=== PATIENT | female | born 1990 | race African-American/Black ===

== ENCOUNTER 2020-01-22 15:51 | Outpatient (CLI) | payer OTHER ==
--- NOTE | 2020-01-22 17:07 | Ultrasound Report ---
PROCEDURE: OB First Trimester INDICATIONS: POSITIVE TEST OUTSIDE/PRIOR DATING DATA: Last menstrual period (LMP): 12/01/2019. LMP-based estimated date of delivery (DOMINGUEZ): 09/06/2020. First dating scan (date and location): 01/22/2020, this examination. Estimated date of delivery (DOMINGUEZ) from first dating scan: 09/08/2020. TECHNIQUE: Real-time scanning was performed of the fetus and maternal pelvic organs, with image documentation. COMPARISON: None. FINDINGS: Embryo: Single living intrauterine fetus is present with a heart rate measured 1 50 bpm. [place] -rump length measures 0.8 cm, 7 weeks 1 day. Perigestational hemorrhage is noted measuring 2.1 x 0.8 x 2.8 cm. Measurement variability in dating: +/- 4 weeks by LMP, +/- 7 days by mean sac diameter (use before 6 weeks gestation if crown-rump length not able to be measured), +/- 5 days by crown-rump length (6-12 weeks gestation). Maternal organs: Ovaries unremarkable. Presumed right-sided corpus luteum. Limited images through t he kidneys demonstrate no hydronephrosis. IMPRESSION: Single living intrauterine fetus with gestational age measuring 7 weeks 1 day by today's ultrasound m easurements. DOMINGUEZ of 09/08/2020, concordant with LMP as above. Perigestational hemorrhage Reviewed by: Gurvinder Kenny MD on 01/22/2020 5:05 PM PDT Approved by: Gurvinder Kenny MD on 01/22/2020 5:05 PM PDT Station ID: [id number]
--- NOTE | 2020-01-22 17:07 | Ultrasound Report ---
PROCEDURE: OB Transvaginal INDICATIONS: POSITIVE PREG TEST Please see findings on the contemporaneous comparison first trimester OB ultrasound report. Reviewed by: Gurvinder Kenny MD on 01/22/2020 5:06 PM PDT Approved by: Gurvinder Kenny MD on 01/22/2020 5:06 PM PDT Station ID: [id number]
== END 2020-01-22 15:52 | disposition home or self-care (01) ==
LOC: DI 15:51
PROVIDERS: ATTEND Obstetrics & Gynecology
DX: Z32.01 Encounter for pregnancy test, result positive (principal)
CPT/HCPCS: 76801; 76817

== ENCOUNTER 2020-02-04 07:00 | Outpatient (CLI) | payer OTHER ==
[2020-02-04 19:44] LABS: CANDIDA GROUP DNA NEGATIVE (NEGATIVE); CANDIDA KRUSEI DNA NEGATIVE (NEGATIVE); TRICHOMONAS VAGINALIS DNA NEGATIVE (NEGATIVE)
== END 2020-02-04 23:59 | disposition home or self-care (01) ==
LOC: LAB.R 07:00
PROVIDERS: ATTEND Obstetrics & Gynecology
DX: N76.0 Acute vaginitis (principal)
CPT/HCPCS: 87661; 87801

== ENCOUNTER 2020-02-18 10:00 | Outpatient (CLI) | payer OTHER, MEDICAID | END 2020-02-18 10:01 | disposition home or self-care (01) | LOC: DI 10:00 | PROVIDERS: ATTEND Obstetrics & Gynecology | DX: O26.891 Other specified pregnancy related conditions, first trimester (principal); Z86.79 Personal history of other diseases of the circulatory system; Z3A.11 11 weeks gestation of pregnancy | CPT/HCPCS: 93306 ==

== ENCOUNTER 2020-03-17 07:00 | Outpatient (CLI) | payer OTHER, MEDICAID | END 2020-03-17 23:59 | disposition home or self-care (01) | LOC: LAB.WCP 07:00 | PROVIDERS: ATTEND Obstetrics & Gynecology | DX: O09.90 Supervision of high risk pregnancy, unspecified, unspecified trimester (principal); Z86.32 Personal history of gestational diabetes; Z3A.00 Weeks of gestation of pregnancy not specified | CPT/HCPCS: 36415; 81599; 82105; 82950 ==

== ENCOUNTER 2020-03-24 07:24 | Outpatient (CLI) | payer OTHER, MEDICAID | END 2020-03-24 07:25 | disposition home or self-care (01) | LOC: LAB 07:24 | PROVIDERS: ATTEND Obstetrics & Gynecology | DX: O99.810 Abnormal glucose complicating pregnancy (principal) | CPT/HCPCS: 36415; 82951; 82952 ==

== ENCOUNTER 2020-07-06 15:36 | Outpatient (CLI) | payer OTHER, MEDICAID ==
[2020-07-06 16:41] VITALS: BP 131/83
--- NOTE | 2020-07-08 10:20 | PROCEDURE REPORT ---
- HPI Current EDU 09/06/20 Gestation 31 Weeks and 1 Days 6 Para 2 Vital Signs Temperature 98.6 F 07/06/20 16:04 Heart Rate 97 07/06/20 16:04 Respiratory Rate 18 07/06/20 16:04 Blood Pressure 131/83 H 07/06/20 16:04 Temperature 98.6 F 07/06/20 16:04 Heart Rate 97 07/06/20 16:04 Respiratory Rate 18 07/06/20 16:04 Blood Pressure 131/83 H 07/06/20 16:04 O2 Saturation - NST Procedure NST Procedure Start Date 07/06/20 Start Time 15:45 Stop Time 16:10 Vibroacoustic Stimulation Used No Patient States Movement Yes EFM 135 mod jessenia 15x15 accels, series of 10x10 accels, one variable decel AGA TOCO: Quiet - Results and Plan Findings/Impression: Patient is a 30 yo at 31+1 wga here with decreased movement NST reactive and reassuring- AGA and Cat I for gestational age Starting twice weekly NST and weekly TY at 32 weeks per primary OB at [address] with hx of pp endocarditis 3 months s/p delivery
== END 2020-07-06 16:15 | disposition home or self-care (01) ==
LOC: WFO 15:36 → FBP 15:40 → WFO 16:15
PROVIDERS: ATTEND Obstetrics & Gynecology
DX: O36.8130 Decreased fetal movements, third trimester, not applicable or unspecified (principal); O24.410 Gestational diabetes mellitus in pregnancy, diet controlled; Z3A.31 31 weeks gestation of pregnancy; Z86.79 Personal history of other diseases of the circulatory system
CPT/HCPCS: 59025; 99212

== ENCOUNTER 2020-07-16 15:13 | Outpatient (CLI) | payer OTHER, MEDICAID ==
--- NOTE | 2020-07-16 17:17 | Ultrasound Report ---
PROCEDURE: OB Limited INDICATIONS: GESTATIONAL DM , SUPER OF HIGH RISK OUTSIDE/PRIOR DATING DATA: Last menstrual period (LMP): 12/01/2019. LMP-based estimated date of delivery (DOMINGUEZ): 09/06/2020. First dating scan (date and location): 01/22/2020. Estimated date of delivery (DOMINGUEZ) from first dating scan: 09/08/2020. TECHNIQUE: Real-time scanning was performed of the fetus, with image documentation. Endovaginal scanning: Not performed COMPARISON: 01/22/2020. FINDINGS: A single living intrauterine gestation is present. Presentation: Cephalic Placenta: Placental position is posterior, without previa. Amniotic fluid index: 11.2 cm, which is at 18.7%. Largest pocket measures 4.2 cm. heart rate: 149 beats per minutes. Maternal cervical canal: 4.6 cm long; normal length is 2.5 cm or more. Estimated gestational age from initial scan: 32 week, 2 days. IMPRESSION: 1. Single live intrauterine with fetus in vertex presentation. heart rate is 149 bpm. 2. TY equals 11.2 cm with the largest pocket measures 4.2 cm. This is at 18.7%. 3. Cervix is closed, cervical canal measures 4.6 cm. Reviewed by: Washington Hamlin MD on 07/16/2020 4:16 PM [facility] Approved by: Washington Hamlin MD on 07/16/2020 4:16 PM [facility] Station ID: [id number]
== END 2020-07-16 15:14 | disposition home or self-care (01) ==
LOC: DI 15:13
PROVIDERS: ATTEND Obstetrics & Gynecology
DX: O09.90 Supervision of high risk pregnancy, unspecified, unspecified trimester (principal); O24.410 Gestational diabetes mellitus in pregnancy, diet controlled; Z86.79 Personal history of other diseases of the circulatory system; Z3A.32 32 weeks gestation of pregnancy

== ENCOUNTER 2020-07-16 15:59 | Outpatient (CLI) | payer OTHER, MEDICAID ==
[2020-07-16 16:54] VITALS: BP 114/63
--- NOTE | 2020-07-16 19:39 | Ultrasound Report ---
PROCEDURE: OB Biophysical Profile INDICATIONS: DM OUTSIDE/PRIOR DATING DATA: Last menstrual period (LMP): 12/01/2019. LMP-based estimated date of delivery (DOMINGUEZ): 09/06/2020. First dating scan (date and location): 01/22/2020. Estimated date of delivery (DOMINGUEZ) from first dating scan: 09/08/2020. TECHNIQUE: Real-time scanning was performed of the fetus, with image documentation and biometric gómez surements. Biophysical profile was also obtained. Endovaginal scanning: Not performed COMPARISON: Earlier same day FINDINGS: General: A single living intrauterine gestation is present. Presentation: Transverse/oblique Placenta: Placental position is posterior, without previa. Amniotic fluid index: 12.6 cm, 30.9 percentile for gestational age. heart rate: 154 beats per minute. Maternal cervical canal: 4.6 cm long; normal length is 2.5 cm or more. This was measured from earli er today. Estimated gestational age : 32 weeks and 2 days Biophysical profile: Tone: 2 points. Movement: 2 points. Respiration: 0 points. Largest pocket of fluid: 2 points. Largest vertical pocket measured 4.7 cm Umbilical artery Doppler: Normal S/D ratios and umbilical artery Doppler waveforms. IMPRESSION: Single living intrauterine gestation with estimated gestational age of approximately 32 weeks and 2 d ays. Biophysical profile score of 6 out of 8. Largest vertical fluid pocket measured 4.7 cm. Normal S/D ratios and umbilical artery Doppler waveforms. Reviewed by: Nish Gerardo MD on 07/16/2020 7:38 PM PST Approved by: Nish Gerardo MD on 07/16/2020 7:38 PM PST Station ID: [id number]
--- NOTE | 2020-07-16 20:13 | PROVIDER PROGRESS NOTE ---
- HPI Chief Complaint: Other ( surveillance visit for A2 GDM) Current : Current EDU 09/06/20 Gestation 32 Weeks and 4 Days 5 Para 2 Vital Signs Temperature 98.1 F 07/16/20 16:20 Heart Rate 91 07/16/20 16:20 Respiratory Rate 18 07/16/20 16:20 Blood Pressure 114/63 07/16/20 16:20 O2 Saturation 99 07/16/20 16:20 Temperature 98.1 F 07/16/20 16:20 Heart Rate 91 07/16/20 16:20 Respiratory Rate 18 07/16/20 16:20 Blood Pressure 114/63 07/16/20 16:20 O2 Saturation 99 07/16/20 16:20 - Procedures OB Procedure Performed: NST NST Procedure: NST Procedure Start Date 07/16/20 Start Time 16:11 Stop Time 16:10 Vibroacoustic Stimulation Used Yes Patient States Movement Yes Service Date of procedure: 07/16/20 Findings: Pt here for routine surveillance for A2 GDM. also complicated by a history of preeclampsia and a history of myocarditis that MFM has deemed NOT secondary to . Feeling good FM. No bleeding or leaking. Contractions about 1-2 per hour. AVSS Alert, NAD NST non-reactive. Baseline normal, no accels, no decels. BPP 6/10 -2 for NST and -2 for breathing. Movement only with VAS. MVP 4.5 Dopplers S/D mid cord 3.0 normal. A/P: 30yo at 32w4d here for routine surveillance for A2GDM with is a bnormal with BPP of 6/10, normal dopplers, normal movement. Discussed with MFM at [facility] Dr. Bustamante who recommends repeating BPP in 24h. Patient will deliver in [place] with Dr. Tello in order to be at the same hospital as her usual glass inserter is at that hospital. Would be best to repeat BPP there in case the patient needs inpatient management. Called covering provider, Dr. Kimball, to arrange BPP there tomorrow. Dr. Kimball recommends coming to OB triage in [place] for her BPP tomorrow. Sent her with her ultrasound results and this note in- hand.
== END 2020-07-16 20:40 | disposition home or self-care (01) ==
LOC: WFO 15:59 → FBP 16:00 → WFO 20:40
PROVIDERS: ATTEND Obstetrics & Gynecology
DX: O09.893 Supervision of other high risk pregnancies, third trimester (principal); O24.410 Gestational diabetes mellitus in pregnancy, diet controlled; Z86.79 Personal history of other diseases of the circulatory system; Z3A.32 32 weeks gestation of pregnancy
CPT/HCPCS: 59025; 99213

== ENCOUNTER 2020-07-20 13:08 | Outpatient (CLI) | payer OTHER, MEDICAID ==
--- NOTE | 2020-07-20 16:36 | Ultrasound Report ---
PROCEDURE: OB Biophysical Profile INDICATIONS: non-reactive NST OUTSIDE/PRIOR DATING DATA: Last menstrual period (LMP): 12/01/2019. LMP-based estimated date of delivery (DOMINGUEZ): 09/06/2020. First dating scan (date and location): 01/22/2020, [facility] Estimated date of delivery (DOMINGUEZ) from first dating scan: 09/08/2020. TECHNIQUE: Real-time scanning was performed of the fetus, with image documentation and biometric gómez surements. Biophysical profile was also obtained. Endovaginal scanning: Not performed COMPARISON: None. FINDINGS: General: A single living intrauterine gestation is present. Presentation: Transverse with head to maternal left Placenta: Placental position is posterior, without previa. Amniotic fluid index: 12.6 cm, 31st percentile for gestational age. heart rate: 154 beats per minute. Maternal cervical canal: 5.7 cm long; normal length is 2.5 cm or more. Biophysical profile: Tone: 2 points. Movement: 2 points. Respiration: 0 points. Largest pocket of fluid: 2 points. Umbilical artery: At the placenta, the umbilical artery S/D ratios were 2.1, 3.4. In the mid segment the S/D ratios were 3.1, 3.0. Near the umbilicus the S/D ratios were 2.8, 2.9. IMPRESSION: Single live intrauterine gestation. Biophysical profile score of 6/8. Umbilical artery S/D ratios as above. Reviewed by: Jay Agarwal MD on 07/20/2020 3:[address] [facility] Approved by: Jay Agarwal MD on 07/20/2020 3:[address] [facility] Station ID: [id number]
--- NOTE | 2020-07-22 15:12 | PROCEDURE REPORT ---
- HPI Diagnosis/Indication for NST: Gestational Diabetes Current EDU 09/06/20 Gestation 33 Weeks and 1 Days 6 Para 2 - NST Procedure NST Procedure Start Date 07/20/20 Start Time 13:42 Stop Time 14:40 Vibroacoustic Stimulation Used Yes: x2 after 20 minute non reactive strip obtained Patient States Movement Yes - Results and Plan Findings/Impression: because pf nonreactive NST BPP was done with 03/14. Plan: Pt is to see Provider in [place] on Monday. Reviewed FM
== END 2020-07-20 15:10 | disposition home or self-care (01) ==
LOC: WFO 13:08 → FBP 13:11 → WFO 15:10
PROVIDERS: ATTEND Obstetrics & Gynecology
DX: O24.419 Gestational diabetes mellitus in pregnancy, unspecified control (principal); Z3A.33 33 weeks gestation of pregnancy
CPT/HCPCS: 59025; 99213

== ENCOUNTER 2020-07-23 12:17 | Outpatient (CLI) | payer OTHER, MEDICAID ==
--- NOTE | 2020-07-23 14:58 | Ultrasound Report ---
PROCEDURE: OB Limited INDICATIONS: GEST DM, WEEKLY TY OUTSIDE/PRIOR DATING DATA: Last menstrual period (LMP): 12/01/2019. LMP-based estimated date of delivery (DOMINGUEZ): 09/06/2020. First dating scan (date and location): 01/22/2020. Estimated date of delivery (DOMINGUEZ) from first dating scan: 09/08/2020. TECHNIQUE: Real-time scanning was performed of the fetus, with image documentation. Endovaginal scanning: Not performed COMPARISON: None. FINDINGS: A single living intrauterine gestation is present. Presentation: Cephalic Placenta: Placental position is left posterior, without previa. Amniotic fluid index: 12.3 cm, 30th percentile for gestational age. heart rate: 143 beats per minutes. Estimated gestational age from initial scan: 33 weeks 2 days. IMPRESSION: TY is 12.3 cm, 30th percentile for gestational age. Reviewed by: Jay Agarwal MD on 07/23/2020 1:57 PM [facility] Approved by: Jay Agarwal MD on 07/23/2020 1:57 PM [facility] Station ID: [id number]
== END 2020-07-23 12:18 | disposition home or self-care (01) ==
LOC: DI 12:17
PROVIDERS: ATTEND Obstetrics & Gynecology
DX: O24.410 Gestational diabetes mellitus in pregnancy, diet controlled (principal); Z3A.33 33 weeks gestation of pregnancy

== ENCOUNTER 2020-07-23 12:58 | Outpatient (CLI) | payer OTHER, MEDICAID ==
[2020-07-23 13:20] VITALS: BP 122/72
--- NOTE | 2020-07-23 15:26 | Ultrasound Report ---
PROCEDURE: OB Biophysical Profile INDICATIONS: non reactive nst OUTSIDE/PRIOR DATING DATA: Last menstrual period (LMP): 12/01/2019. LMP-based estimated date of delivery (DOMINGUEZ): 09/06/2020. First dating scan (date and location): 01/22/2020. Estimated date of delivery (DOMINGUEZ) from first dating scan: 09/08/2020. TECHNIQUE: Real-time scanning was performed of the fetus, with image documentation and biometric gómez surements. Biophysical profile was also obtained. Endovaginal scanning: Not needed COMPARISON: All prior OB ultrasound studies for this FINDINGS: General: A single living intrauterine gestation is present. Presentation: Vertex Placenta: Placental position is posterior left, without previa. Amniotic fluid index: 13.7 cm, normal for gestational age. heart rate: 163 beats per minute. Biophysical profile: Tone: 2 points. Movement: 2 points. Respiration: 2 points. Largest pocket of fluid: 2 points. Cord Doppler assessment is normal also, at the placenta, middle third of the umbilical cord and at th e cord insertion measuring 2.0, 2.1, 2.5 respectively. IMPRESSION: Normal biophysical profile, normal cord Doppler assessment. Reviewed by: Jose Miguel Romero MD on 07/23/2020 3:25 PM PST Approved by: Jose Miguel Romero MD on 07/23/2020 3:25 PM PST Station ID: [id number]
--- NOTE | 2020-07-27 09:58 | PROCEDURE REPORT ---
- HPI Diagnosis/Indication for NST: Gestational Diabetes Current EDU 09/06/20 Gestation 33 Weeks and 4 Days 3 Para 2 Vital Signs Temperature 98.2 F 07/23/20 13:19 Heart Rate 98 07/23/20 13:19 Respiratory Rate 17 07/23/20 13:19 Blood Pressure 122/72 07/23/20 13:19 O2 Saturation 100 07/23/20 13:19 Temperature 98.2 F 07/23/20 13:19 Heart Rate 98 07/23/20 13:19 Respiratory Rate 17 07/23/20 13:19 Blood Pressure 122/72 07/23/20 13:19 O2 Saturation 100 07/23/20 13:19 - NST Procedure NST Procedure Start Date 07/23/20 Start Time 13:15 Stop Time 14:20 Vibroacoustic Stimulation Used No Patient States Movement Yes EFM 150 Had period of moderate varibiality without accels; No decels TOCOL irritable Ordered BPP, returned 03/14 - Results and Plan Findings/Impression: Patient is a 30 yo with a history of pre-eclampsia and A1DM here for NST non-reactive NST; later Cat I BPP 03/14 Cont with twice weekly NSt and weekly TY DX A1DM
== END 2020-07-23 15:20 | disposition home or self-care (01) ==
LOC: WFO 12:58 → FBP 13:01 → WFO 15:20
PROVIDERS: ATTEND Obstetrics & Gynecology
DX: O24.410 Gestational diabetes mellitus in pregnancy, diet controlled (principal); O28.8 Other abnormal findings on antenatal screening of mother; Z3A.33 33 weeks gestation of pregnancy
CPT/HCPCS: 59025

== ENCOUNTER 2020-07-27 14:40 | Outpatient (CLI) | payer OTHER, MEDICAID ==
[2020-07-27 15:22] VITALS: BP 109/64
--- NOTE | 2020-07-27 21:12 | PROCEDURE REPORT ---
- HPI Diagnosis/Indication for NST: Intrauterine growth restriction Vital Signs Temperature 99.5 F 07/27/20 14:50 Heart Rate 96 07/27/20 14:50 Respiratory Rate 16 07/27/20 14:50 Blood Pressure 109/64 07/27/20 14:50 Temperature 99.5 F 07/27/20 14:50 Heart Rate 96 07/27/20 14:50 Respiratory Rate 16 07/27/20 14:50 Blood Pressure 109/64 07/27/20 14:50 O2 Saturation - NST Procedure NST Procedure Start Date 07/27/20 Start Time 14:50 Stop Time 15:55 Vibroacoustic Stimulation Used No Patient States Movement Yes EFM 145 mod jessenia 15x15 accels no decels after VAS TOCO: quiet - Results and Plan Findings/Impression: Patient is a 30 yo at 34+1 with affected by A2DM here for NST Cat I tracing -Cont twice weekly NSt and weekly BPP -Having IOL at 37 wga with [place] Provider DX: -IUP at 34+1 -A1DM -hx of pericarditis
== END 2020-07-27 16:03 | disposition home or self-care (01) ==
LOC: FBP 14:40 → WFO 14:40
PROVIDERS: ATTEND Obstetrics & Gynecology
DX: Z53.9 Procedure and treatment not carried out, unspecified reason (principal)
CPT/HCPCS: 59025; 99212

== ENCOUNTER 2020-07-30 11:24 | Outpatient (CLI) | payer OTHER, MEDICAID ==
--- NOTE | 2020-07-30 12:21 | Ultrasound Report ---
PROCEDURE: OB Biophysical Profile INDICATIONS: GESTATIONAL DM, SUPER HIGH RISK PREGN OUTSIDE/PRIOR DATING DATA: Last menstrual period (LMP): 12/01/2019. LMP-based estimated date of delivery (DOMINGUEZ): 09/06/2020. First dating scan (date and location): 01/22/2020. Estimated date of delivery (DOMINGUEZ) from first dating scan: 09/08/2020. TECHNIQUE: Real-time scanning was performed of the fetus, with image documentation and biometric gómez surements. Biophysical profile was also obtained. Endovaginal scanning: Not performed COMPARISON: None. FINDINGS: General: A single living intrauterine gestation is present. Presentation: Vertex Placenta: Placental position is posterior left, without previa. Amniotic fluid index: 18.2 cm, 73rd percentile for gestational age. heart rate: 149 beats per minute. Maternal cervical canal: Closed, not well seen. Biophysical profile: Tone: 2 points. Movement: 2 points. Respiration: 2 points. Largest pocket of fluid: 2 points. Umbilical artery Doppler: Umbilical artery S/D ratio is 2.2 at the placenta, 2.0 at the midsegment, and 2.1 near the umbilicus. IMPRESSION: Normal biophysical profile and cord Doppler study. Reviewed by: Jay Agarwal MD on 07/30/2020 12:19 PM PST Approved by: Jay Agarwal MD on 07/30/2020 12:19 PM PST Station ID: [id number]
== END 2020-07-30 11:25 | disposition home or self-care (01) ==
LOC: DI 11:24
PROVIDERS: ATTEND Obstetrics & Gynecology
DX: O09.90 Supervision of high risk pregnancy, unspecified, unspecified trimester (principal); O24.410 Gestational diabetes mellitus in pregnancy, diet controlled; Z3A.00 Weeks of gestation of pregnancy not specified

== ENCOUNTER 2020-07-30 12:01 | Outpatient (CLI) | payer OTHER, MEDICAID ==
[2020-07-30 12:32] VITALS: BP 122/81
--- NOTE | 2020-07-30 14:30 | PROCEDURE REPORT ---
- HPI Diagnosis/Indication for NST: Other (hx of pericarditis) Current EDU 09/06/20 Gestation 34 Weeks and 4 Days 2 Para 1 Vital Signs Heart Rate 83 07/30/20 12:31 Respiratory Rate 18 07/30/20 12:31 Blood Pressure 122/81 H 07/30/20 12:31 Temperature 206.2 F H 07/30/20 13:10 Heart Rate 95 07/30/20 13:10 Respiratory Rate 18 07/30/20 13:10 Blood Pressure 122/81 H 07/30/20 13:10 O2 Saturation - NST Procedure NST Procedure Start Date 07/30/20 Start Time 12:21 Stop Time 01:25 EFM 145 mod jessenia 15x15 accels no decels TOCO: quiet - Results and Plan Findings/Impression: Patient is a 30 yo at 34+4 with affected by A2DM here for NST Cat I tracing -Cont twice weekly NST and weekly BPP -Having IOL at 37 wga with [place] Provider DX: -IUP at 34+4 -A1DM -hx of pericarditis
== END 2020-07-30 12:55 | disposition home or self-care (01) ==
LOC: WFO 12:01 → FBP 12:16 → WFO 12:55
PROVIDERS: ATTEND Obstetrics & Gynecology
DX: O24.410 Gestational diabetes mellitus in pregnancy, diet controlled (principal); O09.893 Supervision of other high risk pregnancies, third trimester; Z3A.34 34 weeks gestation of pregnancy; Z86.79 Personal history of other diseases of the circulatory system
CPT/HCPCS: 59025; 99212

== ENCOUNTER 2020-08-03 09:52 | Outpatient (CLI) | payer OTHER, MEDICAID ==
[2020-08-03 10:18] VITALS: BP 115/73
--- NOTE | 2020-08-12 13:45 | PROCEDURE REPORT ---
- HPI Diagnosis/Indication for NST: Gestational Diabetes Current EDU 09/06/20 Gestation 35 Weeks and 1 Days 3 Para 2 Vital Signs Temperature 36.8 C 08/03/20 10:08 Heart Rate 98 08/03/20 10:08 Respiratory Rate 18 08/03/20 10:08 Blood Pressure 115/73 08/03/20 10:08 Temperature 36.8 C 08/03/20 10:11 Heart Rate 101 H 08/03/20 10:11 Respiratory Rate 18 08/03/20 10:11 Blood Pressure 115/73 08/03/20 10:11 O2 Saturation - NST Procedure NST Procedure Start Date 08/03/20 Start Time 09:57 Stop Time 10:55 Vibroacoustic Stimulation Used No Patient States Movement Yes - Results and Plan Findings/Impression: REACTIVE NST Plan: DOS 08/03/2020 CONTINUE ANTINATAL TESTING
== END 2020-08-03 11:00 | disposition home or self-care (01) ==
LOC: WFO 09:52 → FBP 09:56 → WFO 11:00
PROVIDERS: ATTEND Obstetrics & Gynecology
DX: O24.419 Gestational diabetes mellitus in pregnancy, unspecified control (principal); Z3A.35 35 weeks gestation of pregnancy
CPT/HCPCS: 59025

== ENCOUNTER 2020-08-06 10:15 | Outpatient (CLI) | payer OTHER, MEDICAID ==
--- NOTE | 2020-08-06 11:15 | Ultrasound Report ---
PROCEDURE: OB Biophysical Profile INDICATIONS: GESTATIONAL DM, SUPER HIGH RISK PREGN OUTSIDE/PRIOR DATING DATA: Last menstrual period (LMP): 12/01/2019. LMP-based estimated date of delivery (DOMINGUEZ): 09/06/2020. First dating scan (date and location): 01/22/2020. Estimated date of delivery (DOMINGUEZ) from first dating scan: 09/08/2020. TECHNIQUE: Real-time scanning was performed of the fetus, with image documentation and biometric gómez surements. Biophysical profile was also obtained. Endovaginal scanning: Not performed COMPARISON: 07/30/2020 FINDINGS: General: A single living intrauterine gestation is present. Presentation: Vertex Placenta: Placental position is posterior, without previa. Amniotic fluid index: 14.0 cm, 50.3% for gestational age. heart rate: 147 beats per minute. Maternal cervical canal: Not imaged biometrics: Biparietal diameter: Head circumference: Abdominal circumference: Femur length: Estimated gestational age from initial scan: not applicable. Composite gestational age from present scan: Estimated weight and percentile: Measurement variability in biometric dating: +/- 10 days from 12-20 weeks gestation, +/- 2 weeks from 20-30 weeks gestation, +/- 3 weeks at 30 weeks gestation or later. Biophysical profile: Tone: 2 points. Movement: 2 points. Respiration: 2 points. Largest pocket of fluid: 2 points. (4.4 cm) Umbilical artery Doppler: Umbilical artery S/D ratio is 2.6 at the placenta, 2.1 at the midsegment, and 2.6 near the umbilicus. IMPRESSION: 1. Normal biophysical profile. 2. Umbilical artery S/D ratios within normal limits. Reviewed by: Satish Velazco on 08/06/2020 11:14 AM PST Approved by: Satish Velazco on 08/06/2020 11:14 AM PST Station ID: [id number]
== END 2020-08-06 10:16 | disposition home or self-care (01) ==
LOC: DI 10:15
PROVIDERS: ATTEND Obstetrics & Gynecology
DX: O24.410 Gestational diabetes mellitus in pregnancy, diet controlled (principal); O09.93 Supervision of high risk pregnancy, unspecified, third trimester

== ENCOUNTER 2020-08-10 12:46 | Outpatient (CLI) | payer OTHER, MEDICAID ==
[2020-08-10 13:01] VITALS: BP 125/80
--- NOTE | 2020-08-10 15:48 | Ultrasound Report ---
PROCEDURE: OB Biophysical Profile INDICATIONS: decreased movement x 2 days OUTSIDE/PRIOR DATING DATA: Last menstrual period (LMP): 12/01/2019. LMP-based estimated date of delivery (DOMINGUEZ): 09/06/2020. First dating scan (date and location): 01/22/2020 at [facility]. Estimated date of delivery (DOMINGUEZ) from first dating scan: 09/08/2020. (However, DOMINGUEZ of 09/06/2019 used f or this exam at the request of the ordering provider). TECHNIQUE: Real-time scanning was performed of the fetus, with image documentation. Biophysical pro file was also obtained. Endovaginal scanning: Not performed. COMPARISON: Ultrasound 08/06/2020 and 07/30/2020 FINDINGS: General: A single living intrauterine gestation is present. Presentation: Vertex Placenta: Placental position is posterior, without previa. Amniotic fluid index: 12.1 cm, 33rd percentile for gestational age. heart rate: 149 beats per minute. Maternal cervical canal: Not imaged. Biophysical profile: Tone: 0 of 2 points. (Note that tone was seen after the 30 minutes of the biophysical profile) . Movement: 2 of 2 points. Respiration: 0 of 2 points. Largest pocket of fluid: 2 of 2 points. Umbilical artery Doppler: Systolic/diastolic ratio measures 3.4 and 3.2 at the placental insertion, 2.0 and 1.6 at the mid cord, and 2.9 and 2.4 at the abdominal insertion. IMPRESSION: 1. Single live intrauterine . 2. Biophysical profile score 4 at 8. tone and respiration not visualized during the 30 minutes of the exam, although tone was noted after 30 minutes. 3. Umbilical artery Doppler within normal limits. Findings were conveyed to the ordering physician, Dr. Pereira by the line o scribe operator on 08/10/2020 at 2:5 5 PM. Reviewed by: Lucas Love MD on 08/10/2020 3:47 PM PST Approved by: Lucas Love MD on 08/10/2020 3:47 PM PST Station ID: [id number]
--- NOTE | 2020-08-11 11:05 | PROCEDURE REPORT ---
- HPI Diagnosis/Indication for NST: Gestational Diabetes Current EDU 09/06/20 Gestation 36 Weeks and 1 Days 6 Para 2 Vital Signs Temperature 97.7 F 08/10/20 12:59 Heart Rate 97 08/10/20 12:59 Respiratory Rate 18 08/10/20 12:59 Blood Pressure 125/80 08/10/20 12:59 O2 Saturation 98 08/10/20 12:59 Temperature 97.7 F 08/10/20 12:59 Heart Rate 97 08/10/20 12:59 Respiratory Rate 18 08/10/20 12:59 Blood Pressure 125/80 08/10/20 12:59 O2 Saturation 98 08/10/20 12:59 - NST Procedure NST Procedure Start Date 08/10/20 Start Time 12:57 Stop Time 13:32 Vibroacoustic Stimulation Used Yes Patient States Movement Yes: decreased x 2 days - Results and Plan Findings/Impression: Baseline: 135 BPM Deceleratiions: Absent Accelerations: present [place]: neg Impression: category 1 NST Pt also c/o decreased movement so BPP was done. 6/10 during the period of BPP with normal MVP of 4. While dopplers (normal result) were being done, BPP improved to 8/10. Pt will have a repeat BPP done tomorrow.
== END 2020-08-10 15:35 | disposition home or self-care (01) ==
LOC: WFO 12:46 → FBP 12:51 → WFO 12:51 → FBP 13:01 → WFO 15:35
PROVIDERS: ATTEND Obstetrics & Gynecology
DX: O24.419 Gestational diabetes mellitus in pregnancy, unspecified control (principal); O36.8130 Decreased fetal movements, third trimester, not applicable or unspecified; Z3A.36 36 weeks gestation of pregnancy
CPT/HCPCS: 59025

== ENCOUNTER 2023-05-23 07:54 | Emergency (ER) | payer OTHER, MEDICAID ==
[2023-05-23 08:08] VITALS: BP 141/88; O2SAT 97
[2023-05-23] MEDS ORDERED: BACITRACIN ZINC OINT 1 PACKET TOP STA (08:15)
[2023-05-23] MEDS ORDERED: oxyCODONE/ACET 5/325 Prepack 4 PO STA (08:15)
--- NOTE | 2023-05-23 08:17 | ED Physician Documentation ---
PD HPI SKIN - Stated complaint Stated Complaint: LT LEG SWELLING,PX,REDNESS - Chief complaint Chief Complaint: Wound - History obtained from History obtained from: Patient - Additional information Additional information: 33-year-old female presents for evaluation of a painful cyst removal site. 5 days ago patient had a cyst removed at her doctor's office that was subsequently cauterized with silver nitrate. Since that time she has noticed a lot of pain in that area and drainage. Taking Tylenol at home without relief of pain. She is concerned that there may be an infection. Review of Systems Constitutional: denies: Fever, Chills GI: denies: Abdominal Pain, Nausea, Vomiting : denies: Dysuria, Frequency, Hesitancy Skin: reports: Other (painful cyst removal site). denies: Rash, Lesions, Laceration (s) PD PAST MEDICAL HISTORY - Past Medical History Past Medical History: Yes Cardiovascular: Hypertension Respiratory: Asthma Neuro: None Endocrine/Autoimmune: Other GI: None [employer]: Endometriosis : None HEENT: None Psych: Depression Musculoskeletal: None Derm: None - Past Surgical History Past Surgical History: Yes General: Cholecystectomy /[employer]: Hysterectomy - Present Medications Home Medications: Ambulatory Orders Medication Instructions Recorded Confirmed Albuterol Sulfate [Proair Hfa 1 - 2 puffs INH Q4H PRN 04/10/20 05/23/23 Inhaler] Bacitracin Zinc Oint 1 applic TOP BID 5 Days #1 each 05/23/23 Escitalopram Oxalate [Lexapro] 5 mg PO DAILY 05/23/23 05/23/23 bisoproloL fumarate [Bisoprolol 5 mg PO DAILY 05/23/23 05/23/23 Fumarate] - Allergies Allergies/Adverse Reactions: Allergies Allergy/AdvReac Type Severity Reaction Status Date / Time cephalexin Allergy Unknown Verified 05/23/23 08:02 ondansetron Allergy Unknown Verified 05/23/23 08:02 sertraline [From Zoloft] Allergy Hallucinati Verified 05/23/23 08:03 ons - Social History Does the pt smoke?: No Smoking Status: Never smoker Does the pt drink ETOH?: No Does the pt have substance abuse?: No - Immunizations Immunizations are current?: Yes PD ED PE NORMAL - Vitals Vital signs reviewed: Yes - General General: Alert and oriented X 3, No acute distress, Well developed/nourished - Cardiac Cardiac: RRR - Abdomen Abdomen: Soft, Non tender, Non distended - Derm Derm: Normal color, Warm and dry, Other (small 1.5cm diameter cyst removal site upper inner L thigh with normal-appearing eschar overlying. 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 The cyst removal site in question appears to be well-healing with normal-appearing eschar overlying. No surrounding fluctuance, erythema, warmth, induration to suggest underlying infection. Patient's cyst is in the upper inner left thigh and pain is likely exacerbated by friction. Patient given a very small dose of pain medications, will discharge with bacitracin ointment and dressings. Wound care instructions discussed at bedside with patient. Departure - Departure Disposition: 01 Home, Self Care Clinical Impression: Eschar of wound bed, Encounter for evaluation of wound Condition: Stable Instructions: Wound Care, Wound Dressing Steps Prescriptions: Bacitracin Zinc Oint 1 applic TOP BID 5 Days #1 each Forms: PCP List
== END 2023-05-23 08:34 | disposition home or self-care (01) ==
LOC: ED 07:54
DX: Z48.817 Encounter for surgical aftercare following surgery on the skin and subcutaneous tissue (principal)
CPT/HCPCS: 99282; A9270

== ENCOUNTER 2023-09-08 07:03 | Emergency (ER) | payer MEDICAID, OTHER ==
--- NOTE | 2023-09-08 07:09 | ED Physician Documentation ---
PD HPI NVD - Stated complaint Stated Complaint: ABD PX - History obtained from History obtained from: Patient, EMS - History of Present Illness Timing - onset: How many days ago (2 days of nausea with onset of vomiting yesterday, s/p laparoscopic gastric sleeve surgery 2 days ago in [place] area. Also upper abd pains, increasing. Has only had sips of clear liquids, per post op directions of the surgeons.) Timing - duration: Days (2) Timing - details: Abrupt onset Associated symptoms: Abdominal pain (upper abd), Loss of appetite. No: Fever, Chest pain, Hematemesis Review of Systems Constitutional: denies: Fever Nose: denies: Rhinorrhea / runny nose, Congestion Throat: denies: Sore throat Respiratory: denies: Cough GI: reports: Abdominal Pain, Nausea, Vomiting. denies: Diarrhea, Hematemesis : denies: Dysuria, Frequency PD PAST MEDICAL HISTORY - Past Medical History Cardiovascular: Hypertension Respiratory: Asthma Neuro: None Endocrine/Autoimmune: Other GI: None [employer]: Endometriosis : None HEENT: None Psych: Depression Musculoskeletal: None Derm: None - Past Surgical History Past Surgical History: Yes General: Cholecystectomy /[employer]: Hysterectomy - Present Medications Home Medications: Ambulatory Orders Medication Instructions Recorded Confirmed Albuterol Sulfate [Proair Hfa 1 - 2 puffs INH Q4H PRN 04/10/20 09/08/23 Inhaler] Escitalopram Oxalate [Lexapro] 10 mg PO DAILY 05/23/23 09/08/23 bisoproloL fumarate [Bisoprolol 5 mg PO HS 05/23/23 09/08/23 Fumarate] ALPRAZolam [Xanax] 0.25 mg PO TID PRN 09/08/23 09/08/23 Acetaminophen [Tylenol] 500 mg PO Q6HR 09/08/23 09/08/23 Cholestyramine [Questran] 1 packet PO DAILY 09/08/23 09/08/23 Gabapentin [Neurontin] 6 ml PO BID 09/08/23 09/08/23 Metoclopramide [Reglan] 10 mg PO QID PRN 09/08/23 09/08/23 Pantoprazole [Protonix] 40 mg PO DAILY 09/08/23 09/08/23 Prochlorperazine Supp [Compazine 25 mg NC Q6H PRN #10 supp 09/08/23 Supp] Scopolamine [Transderm-Scop] 1 patch TD .EVERY 3 DAYS 09/08/23 09/08/23 diphenhydrAMINE [Benadryl] 25 mg PO HS PRN 09/08/23 09/08/23 methocarbamoL [Methocarbamol] 750 mg PO QID 09/08/23 09/08/23 oxyCODONE [Roxicodone] 5 mg PO Q4-6H PRN 09/08/23 09/08/23 polyethylene glycoL 3350 17 gm PO . EVERY OTHER DAY 09/08/23 09/08/23 [Polyethylene Glycol 3350] - Allergies Allergies/Adverse Reactions: Allergies Allergy/AdvReac Type Severity Reaction Status Date / Time cephalexin Allergy Unknown Verified 09/08/23 07:37 ondansetron Allergy Unknown Verified 09/08/23 07:37 sertraline [From Zoloft] Allergy Hallucinati Verified 09/08/23 07:37 ons bupropion [From Wellbutrin] AdvReac Unknown Verified 09/08/23 07:37 phentermine AdvReac Unknown Verified 09/08/23 07:37 - Social History Does the pt smoke?: No Smoking Status: Never smoker Does the pt drink ETOH?: No Does the pt have substance abuse?: No - Immunizations Immunizations are current?: Yes PD ED PE NORMAL - Vitals Vital signs reviewed: Yes - General General: Alert and oriented X 3, Well developed/nourished, Other (having small emesis of liquid, faint bilious coloring. No noted blood. Appears very uncomfortable. ) - HEENT HEENT: Pharynx benign - Neck Neck: Supple, no meningeal sign, No adenopathy - Cardiac Cardiac: RRR, No murmur - Respiratory Respiratory: No respiratory distress, Clear bilaterally - Abdomen Abdomen: Soft, Non distended, Other (tender with guarding upper abd, RUQ and epigastric mainly. Lower abd not tender. Laparoscpic wounds all appear noninfected. ). No: Normal bowel sounds (decreased) - Rectal Rectal: Deferred - Back Back: No CVA TTP - Derm Derm: Normal color, Warm and dry - Extremities Extremities: No edema - Neuro Neuro: Alert and oriented X 3, No motor deficit, Normal speech Results - Vitals Vitals: Oxygen O2 Source Room air - Labs Labs: Laboratory Tests 09/08/23 09/08/23 09/08/23 07:33 07:33 07:33 WBC 16.3 H RBC 3.54 L Hgb 9.9 L Hct 30.2 L MCV 85.3 MCH 28.0 MCHC 32.8 RDW 13.1 Plt Count 257 MPV 11.3 H Neut # (Auto) 12.5 H Lymph # (Auto) 2.8 Power # (Auto) 0.9 Eos # (Auto) 0.0 Baso # (Auto) 0.0 Absolute Nucleated RBC 0.00 Nucleated RBC % 0.0 Sodium 137 Potassium 3.3 L Chloride 100 L Carbon Dioxide 26 Anion Gap 11.0 BUN 6 Creatinine 0.6 Estimated GFR (MDRD) 140 Glucose 129 H Lactic Acid 1.2 Calcium 9.0 Phosphorus 1.2 L Magnesium 1.8 Total Bilirubin 0.3 AST 34 ALT 43 Alkaline Phosphatase 59 Total Protein 7.5 Albumin 4.4 Globulin 3.1 Albumin/Globulin Ratio 1.4 Lipase 30 PD Medical Decision Making - ED course Complexity details: reviewed results (elevated WBC may be physiologic/stess. Lactate is okay and afebrile. K and Phos are low. Mag is okay. Can give supplements. Also giving IV fluids for volume depletion. ), re-evaluated patient (she is feeling better with IV fluids, antiemetics and some pain medds.), considered differential (Gastric sleeve surgery 2 days ago in [place] area by bariatric surgeon. Upper abdominal pain with nausea despite scopolamine patch and Reglan p.o. Vomiting since yesterday. Increased abdominal pain. Will get labs and electrolytes and CT scan to evaluate for postoperative complications.), d/w patient, d/w [employer] consultant (Bariatric Surgeon who did her surgery: small fluids less than ounce at a time. medications for nausea. Some for pain is okay. ) Reviewed Lab Results: CT abd without obsctruction, perforations, free air nor fluid. Gastric sleeve in place. Some contrast does get tthrough the sleeve area, so not obstruction per se. Departure - Departure Disposition: 01 Home, Self Care Clinical Impression: S/P gastric sleeve procedure, Nausea and vomiting, Acute upper abdominal pain Condition: Stable Record reviewed to determine appropriate education?: Yes Prescriptions: Prochlorperazine Supp [Compazine Supp] 25 mg NC Q6H PRN #10 supp PRN Reason: Nausea / Vomiting Comments: I talked with Dr. Marie White the bariatric surgeon who cared for you. He wanted to have you reminded to contact your care team if you are having symptoms or problems and also his phone number directly which I gave you a copy of additionally here today. Unfortunately the feeling of easy bloating with nausea and some degree of pain is to be expected. Your CT scan did not show any acute abnormalities that were not expected, in particular no signs of perforation or internal bleeding or obstruction. It did show inflammation and edema around the stomach and first part of the intestine and also a little bit of free fluid in the abdomen cavity which are expected changes from your procedure. Continue with the small amounts of clear liquids only for a couple more days at least per Dr. White. Only an ounce at most at a time. Continue with the Reglan for nausea. If needed you can use Compazine suppositories as well. Tylenol for pain. Dr. White did suggest using your alprazolam/Xanax if needed for pain as well as it can help with stomach spasms. Small amounts of antacid such as Maalox or Mylanta may be helpful at times as well. Call your care team or Dr. White if you are having problems again over the next few days but in any event they would like to hear from you tomorrow as an update. Return to the ER if needed. I sent a prescription to [facility] pharmacy. Forms: PCP List Discharge Date/Time: 09/08/23 11:50
[2023-09-08] MEDS ORDERED: DROPERIDOL 5 MG/2 ML VIAL IVP STA (07:22)
[2023-09-08] MEDS ORDERED: SODIUM CHLORIDE 0.9% 1,000 ML IV STA ×2 (07:22→08:24)
[2023-09-08] MEDS ORDERED: ACETAMINOPHEN 1,000 MG/100 ML 1,000 MG/100 ML BAG IV ONE (07:22)
[2023-09-08] MEDS ORDERED: diphenhydrAMINE INJ 50 MG/ML VIAL IVP STA (07:23)
[2023-09-08 07:25] VITALS: O2SAT 100
[2023-09-08 07:42] LABS: BASOPHILS % (AUTO) 0.2 %; EOSINOPHILS % (AUTO) 0.1 %; HCT - HEMATOCRIT 30.2 % (37.0-47.0); HGB - HEMOGLOBIN 9.9 g/dL (12.0-16.0); LYMPHOCYTES # (AUTO) 2.8 10^3/uL (1.5-3.5); LYMPHOCYTES % (AUTO) 17.1 %; MEAN CORPUSCULAR HGB CONC 32.8 g/dL (32.0-36.0); MEAN CORPUSCULAR VOLUME 85.3 fL (81.0-99.0); MEAN PLATELET VOLUME 11.3 fL (7.9-10.8); MONOCYTES # (AUTO) 0.9 10^3/uL (0.0-1.0); MONOCYTES % (AUTO) 5.4 %; NEUTROPHILS # (AUTO) 12.5 10^3/uL (1.5-6.6); NEUTROPHILS % (AUTO) 76.8 %; PLT - PLATELET COUNT 257 10^3/uL (130-450); RED BLOOD COUNT 3.54 10^6/uL (4.20-5.40); RED CELL DISTRIBUTION WIDTH 13.1 % (12.0-15.0); WHITE BLOOD COUNT 16.3 x10^3/uL (4.8-10.8)
[2023-09-08] MEDS ORDERED: DIATRIZOATE MEGLU/DIATRIZO SOD 30 ML BOTTLE PO ONE ×2 (07:47→09:44)
[2023-09-08] MEDS ORDERED: iohexoL-300 100 ML VIAL ONE (07:47)
[2023-09-08 07:52] LABS: ALBUMIN 4.4 g/dL (3.2-5.5); ALBUMIN/GLOBULIN RATIO 1.4 (1.0-2.2); BILIRUBIN,TOTAL 0.3 mg/dL (0.2-1.0); CREATININE 0.6 mg/dL (0.6-1.3); MAGNESIUM 1.8 mg/dL (1.7-2.3); PHOSPHORUS 1.2 mg/dL (2.5-5.0); POTASSIUM 3.3 mmol/L (3.5-4.5); TOTAL PROTEIN 7.5 g/dL (6.4-8.9)
[2023-09-08] MEDS ORDERED: POTASSIUM PHOSPHATE 15 MMOL in SODIUM CHLORIDE 0.9% 250 ML IV ONE (08:09)
[2023-09-08] MEDS ORDERED: FAMOTIDINE 20 MG/2 ML VIAL IVP STA (08:22)
[2023-09-08] MEDS ORDERED: METOCLOPRAMIDE 10 MG/2 ML VIAL IVP STA (08:22)
--- NOTE | 2023-09-08 08:57 | CT Report ---
PROCEDURE: Abdomen/Pelvis W INDICATIONS: 2 d post op gastric sleeve, vomiting CONTRAST: 100ml omni 300 TECHNIQUE: After the administration of intravenous contrast, a CT scan of the abdomen and pelvis was performed. Images were recorded and evaluated at appropriate window settings. Reformats: coronal and sagittal. F or radiation dose reduction, the following was used: automated exposure control, adjustment of mA and /or kV according to patient size. COMPARISON: None. FINDINGS: Image quality: Diagnostic Lower chest: No basal effusions or consolidations. Liver: Unremarkable Gallbladder and biliary system: Absent, nondilated Pancreas: No ductal dilation. There is nonspecific peripancreatic fat stranding. Spleen: Small perisplenic fluid Adrenals: No discrete nodules Kidneys: No solid mass. No hydronephrosis. Vessels and lymph nodes: Main portal vein is patent. No abdominal aortic aneurysm. No pathologic lymp h nodes by size criteria. Bowel and peritoneum: Status post gastric sleeve. There is moderate wall thickening and edema around the stomach, particularly along the greater curvature, lesser sac. No evidence of small bowel obstruc tion. No drainable abscess. There is a small amount of high-density free fluid in the pelvis. Body wall: Likely postsurgical subcutaneous moderate fat stranding. Pelvis: Bladder is unremarkable. The uterus is absent. Bones: No acute or suspicious osseous finding. IMPRESSION: Status post gastric sleeve surgery. No bowel obstruction. Moderate edema, wall thickening, and fat stranding is seen surrounding the pancreas, within the lesse r sac, and along the greater curvature of the stomach. Although these may be due to postsurgical stat e, superimposed gastritis or pancreatitis are possible. There is also high density fluid in the pelvi c cul-de-sac and around the spleen. Anastomotic leak is a differential consideration as well. Other findings as above. Reviewed by: Blue Marie MD on 09/08/2023 8:56 AM PST Approved by: Blue Marie MD on 09/08/2023 8:56 AM PST Station ID: [id number]
[2023-09-08] MEDS ORDERED: iohexoL-300 100 ML VIAL IVP ONE (09:32)
[2023-09-08] MEDS ORDERED: LORazepam 2 MG/ML VIAL IVP STA (10:17)
[2023-09-08] MEDS ORDERED: KETOROLAC 30 MG/ML VIAL IVP STA (10:22)
[2023-09-08] MEDS ORDERED: ACETAMINOPHEN 325 MG TABLET PO STA (10:24)
[2023-09-08 11:14] VITALS: BP 167/93
== END 2023-09-08 11:50 | disposition home or self-care (01) ==
LOC: ED 07:03
DX: R11.2 Nausea with vomiting, unspecified (principal); K95.89 Other complications of other bariatric procedure; Z98.84 Bariatric surgery status; Y84.8 Other medical procedures as the cause of abnormal reaction of the patient, or of later complication, without mention of misadventure at the time of the procedure; R10.9 Unspecified abdominal pain; I10 Essential (primary) hypertension
CPT/HCPCS: 36415; 74177; 80053; 83605; 83690; 83735; 84100; 85025; 96365; 96375; 99284; A9270; J0131; J1200; J2060; J2765; Q9963; Q9967